=== PATIENT | female | born 1940 ===

== ENCOUNTER → 2021-11-09 15:32 | Outpatient (BNVA) | payer MEDICARE, SELFPAY | PROVIDERS: PCP Registered Nurse; Visit Provider Psychiatry & Neurology Neurology | DX: D32.9 Benign neoplasm of meninges, unspecified (principal); R56.9 Unspecified convulsions | CPT/HCPCS: Q3014 ==

== ENCOUNTER → 2022-05-10 13:45 | Outpatient (BNVA) | payer MEDICARE, SELFPAY | PROVIDERS: PCP Registered Nurse; Visit Provider Psychiatry & Neurology Neurology | DX: D32.9 Benign neoplasm of meninges, unspecified (principal); R56.9 Unspecified convulsions | CPT/HCPCS: 99212 ==

== ENCOUNTER → 2022-12-09 08:03 | Outpatient (BNVA) | payer MEDICARE, SELFPAY | PROVIDERS: PCP Registered Nurse; Visit Provider Psychiatry & Neurology Neurology | DX: D32.0 Benign neoplasm of cerebral meninges (principal); R56.9 Unspecified convulsions; Z79.899 Other long term (current) drug therapy | CPT/HCPCS: 99212 ==

== ENCOUNTER 2024-08-29 10:56 | Outpatient (AMB) | payer MEDICARE, SELFPAY ==
--- NOTE | 2024-08-29 10:56 | MHC.OFFVIS ---
Intake Visit Reasons: Follow Up Intake Note: patient following up Allergies No Known Allergies Allergy (Verified 08/29/24 10:57) Medication List - Last Reconciled 08/29/24 by Chrissie Murillo MD atorvastatin 20 mg PO DAILY levetiracetam 1,000 mg (2 x 500 mg) PO BID 90 days lisinopril-hydrochlorothiazide 20-12.5 mg 1 tab PO DAILY HPI Comments Details: ?Seizures - 2013 during meningioma resection ??? 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 ? 84y/o female calls for follow up . No seizures .No side effects from Keppra ???Denies headaches she reports mild balance issues. No falls .she has mild memory issues.she uses a cane . she had a recent surgery in her small intestine and is recovering. she is independent in most ADLs.- her daughter helps with cooking bathing laundry etc. PFSH Medical History Meningioma Seizures HTN (hypertension) Surgical History Hx of brain surgery Social History Alcohol intake: never Patient Tobacco Use Status: Never used Tobacco Physical Exam Const General: cooperative Orientation/consciousness: oriented to person, oriented to place and oriented to time Neuro General: oriented to person, oriented to place and oriented to time Telehealth Telehealth Telehealth Platform: Telephone Location of provider rendering services: practice address Location of patient: address on file Patient Identification confirmed using: Name, : Yes Telehealth method: voice only Patient verbally consented to treatment: Yes Patient verbally consented to billing insurance company: Yes Patient informed of any privacy concerns related to visit: Yes Minutes spent on Phone/Video with Pt.: 18 Assessment & Plan Assessment & Plan (1) Meningioma: Code(s): D32.9 - Benign neoplasm of meninges, unspecified Category: Medical (2) Seizures: Code(s): R56.9 - Unspecified convulsions Category: Medical Plan Continue keppra 500 mg 2 tabs bid will consider repeat MRI to f/u her meningioma if she develops any focal neurological symptoms. Medications: Refilled levetiracetam 1,000 mg (2 x 500 mg) PO BID 90 days 360 tabs 1RF Coding Level of Care Code Tele Est Pt Level 4 (78817) Diagnoses Meningioma D32.9 Seizures R56.9
== END 2024-08-29 16:08 | disposition home or self-care (01) ==
LOC: HO.HSMS 10:56
PROVIDERS: PCP Registered Nurse; Visit Provider Psychiatry & Neurology Neurology
DX: D32.9 Benign neoplasm of meninges, unspecified (principal); R56.9 Unspecified convulsions
CPT/HCPCS: 99214

== ENCOUNTER → 2024-08-29 10:56 | Outpatient (BNVA) | payer MEDICARE, SELFPAY | PROVIDERS: PCP Registered Nurse; Visit Provider Psychiatry & Neurology Neurology ==